=== PATIENT | female | born 1995 | race Caucasian/White ===

== ENCOUNTER 2019-04-05 08:39 | Emergency (ER) | payer MEDICAID ==
[2019-04-05] MEDS ORDERED: Lidocaine 2% 20 ML MDV INFILT ONE (08:40)
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
[2019-04-05] MEDS ORDERED: Sodium Chloride 0.9% 10 ML Syringe FLUSH PRN (09:30)
[2019-04-05] MEDS ORDERED: Sodium Chloride 0.9% 1,000 ML IV ONE (09:30)
[2019-04-05] MEDS ORDERED: Cephalexin 500 MG Cap PO ONE (10:17)
[2019-04-05] MEDS ORDERED: Bacitracin Oint 1 GM U/D Packet TOP ONE (10:17)
[2019-04-05 10:45] VITALS: BP 106/53; PULSE 65
== END 2019-04-05 11:15 | disposition home or self-care (01) ==
LOC: FB.ED 08:39
DX: S61.411A Laceration without foreign body of right hand, initial encounter (principal); R55 Syncope and collapse; Z88.2 Allergy status to sulfonamides; Z88.8 Allergy status to other drugs, medicaments and biological substances; W25.XXXA Contact with sharp glass, initial encounter
CPT/HCPCS: 12001; 36415; 73130; 80048; 85025; 93005; 96360; 99283; A9270; J2001; J7030